=== PATIENT | female | born 1995 | race Caucasian/White ===

== ENCOUNTER 2021-07-10 19:28 | Emergency (ER) | payer OTHER ==
[~2021-07-10] VITALS: Ht 152.4 cm; Wt 59.0 kg
[2021-07-10] MEDS ORDERED: CASIRIVIMAB/IMDEVIMAB 10 ML in SODIUM CHLORIDE 0.9% 100 ML IV ONE (20:30)
== END 2021-07-10 21:58 | disposition home or self-care (01) ==
LOC: ER 20:32
DX: O98.512 Other viral diseases complicating pregnancy, second trimester (principal); U07.1 COVID-19; Z88.6 Allergy status to analgesic agent
CPT/HCPCS: 99283; J7050